=== PATIENT | female | born 1965 | race Caucasian/White ===

== ENCOUNTER 2023-09-23 00:54 | Emergency (ER) | payer MEDICAID ==
[~2023-09-23] VITALS: Ht 157.5 cm; Wt 71.0 kg
[2023-09-23 01:24] VITALS: O2SAT 100
[2023-09-23 02:19] LABS: CLARITY URINE CLEAR (CLEAR); COLOR URINE YELLOW (YELLOW); GLUCOSE URINE NEGATIVE (NEGATIVE); KETONES URINE NEGATIVE (NEGATIVE); LEUKOCYTE ESTERASE URINE 1+ (NEGATIVE); NITRITE URINE NEGATIVE (NEGATIVE); OCCULT BLOOD URINE TRACE (NEGATIVE); PROTEIN URINE NEGATIVE (NEGATIVE); SPECIFIC GRAVITY URINE 1.015 (1.005-1.030); UROBILINOGEN URINE 0.2 E.U./dL (0.2-1.0)
[2023-09-23 04:14] LABS: RBC URINE 0-2 /hpf (0-2); SQUAMOUS EPITHELIAL CELL URINE FEW /lpf (RARE/1+)
[2023-09-23 04:15] LABS: BACTERIA URINE 1+
[2023-09-23] MEDS ORDERED: CEFP200T13 MT (04:32)
[2023-09-23 05:00] VITALS: BP 195/95; PULSE 79; RESP 14; TEMP 98.4
== END 2023-09-23 05:00 | disposition home or self-care (01) ==
LOC: ER 01:21
DX: N12 Tubulo-interstitial nephritis, not specified as acute or chronic (principal); I10 Essential (primary) hypertension
CPT/HCPCS: 81003; 81025; 99283